=== PATIENT | male | born 1985 | race Caucasian/White ===

== ENCOUNTER 2024-11-29 13:14 | Emergency (ER) | payer OTHER ==
[~2024-11-29] VITALS: Ht 175.3 cm; Wt 80.0 kg
[2024-11-29 13:47] VITALS: O2SAT 100
[2024-11-29 14:36] VITALS: BP 130/72; PULSE 85; RESP 14; TEMP 36.7; O2SAT 99
== END 2024-11-29 14:43 ==
LOC: ER 13:14
DX: F41.0 Panic disorder [episodic paroxysmal anxiety] (principal); Z02.89 Encounter for other administrative examinations; Z65.3 Problems related to other legal circumstances
CPT/HCPCS: 99283